=== PATIENT | female | born 1975 | race African-American/Black ===

== ENCOUNTER 2017-12-11 20:43 | Emergency (ER) | payer MEDICAID ==
[~2017-12-11] VITALS: Ht 167.6 cm; Wt 100.0 kg
[2017-12-11] MEDS ORDERED: ALBUTEROL/IPRATROPIUM 2.5MG/0.5MG, 3 ML ONE (21:01)
[2017-12-11] MEDS ORDERED: KETOROLAC 30 MG/1 ML ONE (21:12)
[2017-12-11] MEDS ORDERED: methylPREDNISolone SOD SUCC 125 MG/2 ML ONE (21:12)
[2017-12-11] MEDS ORDERED: LORazepam 2 MG/ML, 1ML ONE (21:13)
[2017-12-11] MEDS ORDERED: LORazepam 2 MG/ML, 1ML IVP ONE (21:30)
[2017-12-11] MEDS ORDERED: KETOROLAC 30 MG/1 ML IVPush ONE (21:30)
[2017-12-11] MEDS ORDERED: methylPREDNISolone SOD SUCC 125 MG/2 ML IVP ONE (21:30)
[2017-12-11] MEDS ORDERED: PLEASE ENTER ALLERGIES MC SCH (21:30)
[2017-12-11 21:31] LABS: BASOPHILS # (AUTO) 0.06 x10^3/uL (0-0.1); BASOPHILS % (AUTO) 1 % (0-1); EOSINOPHILS # (AUTO) 0.21 x10^3/uL (0-0.4); EOSINOPHILS % (AUTO) 2 % (1-7); LYMPHOCYTES # (AUTO) 2.57 x10^3/uL (1-3.4); LYMPHOCYTES % (AUTO) 21 % (22-44); MD NO; MEAN CORPUSCULAR HEMOGLOBIN 27.6 pg (27.0-34.8); MEAN CORPUSCULAR HGB CONC 32.2 g/dL (32.4-35.8); MEAN CORPUSCULAR VOLUME 85.7 fL (80-100); MEAN PLATELET VOLUME 8.3 fL (7.4-10.4); MONOCYTES # (AUTO) 1.02 x10^3/uL (0.2-0.8); MONOCYTES % (AUTO) 8 % (2-9); NEUTROPHILS # (AUTO) 8.69 x10^3/uL (1.8-6.8); NEUTROPHILS % (AUTO) 69 % (42-75); PLATELET COUNT 385 x10^3/uL (130-400); RED BLOOD COUNT 4.78 x10^6/uL (3.82-5.3); RED CELL DISTRIBUTION WIDTH 15.6 % (9.6-15.2)
[2017-12-11 21:41] LABS: ALBUMIN 3.9 g/dL (3.4-5.0); ANION GAP 7 mmol/L (5-15); CALCIUM 9.2 mg/dL (8.5-10.1); CHLORIDE 108 mmol/L (98-107); CREATININE 1.12 mg/dL (0.55-1.02)
[2017-12-11 21:45] LABS: TROPONIN I < 0.015 ng/mL (0.000-0.045)
[2017-12-11 22:00] VITALS: BP 135/76
== END 2017-12-11 22:29 | disposition home or self-care (01) ==
LOC: ED 22:23
DX: J45.901 Unspecified asthma with (acute) exacerbation (principal); R07.2 Precordial pain; F41.9 Anxiety disorder, unspecified
CPT/HCPCS: 36415; 71045; 80048; 82040; 83880; 84484; 84703; 85025; 93005; 94640; 96374; 96375; 99285; J1885; J2060; J2930